=== PATIENT | male | born 1965 | race Caucasian/White ===

== ENCOUNTER 2021-06-01 16:19 | Inpatient (IN) | payer OTHER, SELFPAY ==
--- NOTE | ~2021-06-01 | XR_ITS ---
EXAMINATION: XR CHEST CLINICAL INFORMATION: Covid positive COMPARISON: None TECHNIQUE: Frontal view of the chest was obtained. FINDINGS: Patchy airspace opacities seen bilaterally. No pleural effusion or pneumothorax. Heart size is normal. No acute osseous abnormality. XR/XR chest 1V IMPRESSION: Patchy airspace opacities bilaterally consistent with atypical infection such as Covid pneumonia.
--- NOTE | ~2021-06-01 | CT_ITS ---
EXAMINATION: CT ANGIOGRAM OF THE CHEST WITH AND WITHOUT CONTRAST (CT PULMONARY ANGIOGRAM FOR PE) CLINICAL INFORMATION: COVID positive. Hypoxia. Evaluate for pulmonary embolism. COMPARISON: Chest radiograph done earlier the same day. TECHNIQUE: Prior to contrast administration, noncontrast localization images were obtained. Subsequently, multidetector volumetric imaging was performed from the thoracic inlet to below the diaphragms following the administration of 71 mL Omnipaque 350 intravenous contrast. No contrast reaction reported. Sagittal, coronal, and MIP oblique sagittal reformatted images were obtained on the CT workstation, uploaded to PACS, and reviewed. This CT examination was performed using dose optimization techniques as appropriate, variously including the following: *Automated exposure control *Adjustment of mA and/or kV according to patient size (this includes techniques or standardized protocols for targeted exams where dose is matched to indication/reason for exam; i.e. extremities or head) *Use of iterative reconstruction technique Total exam dose-length product 381 mGy-cm. FINDINGS: QUALITY OF STUDY/CONTRAST BOLUS: Satisfactory. PULMONARY ARTERIES: No central or segmental pulmonary emboli. THORACIC AORTA: No aneurysm or dissection. LUNG: There are diffuse bilateral ground-glass airspace opacities. No dense consolidative airspace opacity. No large mass or nodule. The central airways are patent. PLEURA: No pleural effusion or pneumothorax. MEDIASTINUM: Normal heart size. No pericardial effusion. No hilar or mediastinal lymphadenopathy. No evidence of septal bowing or right heart strain. CHEST WALL/AXILLA: No axillary or internal mammary lymphadenopathy. OSSEOUS STRUCTURES: No acute or suspicious osseous abnormality. UPPER ABDOMEN: Unremarkable. No reflux of contrast into the hepatic veins to suggest elevated right heart pressures. CT/CT angio chest PE protocol IMPRESSION: 1. No CT angiographic evidence of acute pulmonary embolism. 2. Diffuse bilateral ground-glass airspace opacities, consistent with multifocal pneumonia. Findings can be seen in the setting of an infectious or inflammatory process, including viral pneumonia. VTE: Negative
[2021-06-01 16:37] VITALS: O2SAT 88
[2021-06-01 16:45] VITALS: BP 140/90; PULSE 83; RESP 18; TEMP 36.9; O2SAT 94; BMI 31.8
--- NOTE | 2021-06-01 16:45 | ECG_ITS ---
Test Reason : SOB Blood Pressure : / mmHG Vent. Rate : 082 BPM Atrial Rate : 082 BPM P-R Int : 154 ms QRS Dur : 096 ms QT Int : 384 ms P-R-T Axes : 043 002 038 degrees QTc Int : 448 ms Normal sinus rhythm Cannot rule out Inferior infarct (cited on or before 23-FEB-2008) Abnormal ECG When compared with ECG of 23-FEB-2008 14:05, No significant change was found Referred By: Henry Ba Electronically Signed By:Favio Crane
--- NOTE | 2021-06-01 16:45 | ED_ITS ---
HPI - SOB/Dyspnea General Chief Complaint: Dyspnea Stated Complaint: Covid+ 05/27 - SOB Time Seen by Provider: 06/01/21 16:34 Source: patient Mode of arrival: ambulatory Limitations: no limitations History of Present Illness HPI Narrative: Patient 55 years old male not vaccinated against COVID been feeling short of breath with dry cough since 05/25/2021 came here for increased shortness of breath for last 2 days saturating 88% at room air of the patient feeling very weak not able to eat much does not feel hungry and having loose bowels patient is saturating 94% on 2 L nasal cannula oxygen Related Data Allergies Allergy/AdvReac Type Severity Reaction Status Date / Time No Known Allergies Allergy Mild NONE Unverified 03/08/20 16:33 Review of Systems Review of Systems: Constitutional : No Weight loss, No Fever, No Chills ENT/Mouth : No sore throat, No Rhinorrhea Eyes: No Eye Pain, No Swelling Cardiovascular : No Chest Pain, no palpitations Respiratory : + Cough, No Sputum,+shortness of breath Gastrointestinal : no Nausea, No Vomiting, ++ Diarrhea, No abdominal Pain, no black stools Genitourinary : No Dysuria, No Urinary Frequency Musculoskeletal : No joint pain, No Myalgias, No Joint Swelling Skin : No Skin Lesions, No rash Neuro : + Weakness, No Numbness, No Dizziness, No Headache Psych : No Anxiety/Panic, No Depression Heme/Lymph: No Bruising, No Lymphadenopathy Endocrine : No Polyuria, No Polydipsia All other systems reviewed and are negative PMFSH Social History Social History Advance Directives: No Advance Directives Information Provided: No Physical Exam Vital Signs: Vital Signs: Last Vital Signs Temp 98.4 F 06/01/21 16:45 Pulse 80 06/01/21 20:57 Resp 27 H 06/01/21 20:57 BP 151/93 H 06/01/21 20:57 Pulse Ox 94 06/01/21 20:57 Oxygen Flow Rate 2 06/01/21 16:45 BMI result Body Mass Index 31.8 Appearance: Alert. Oriented X3. Mild respiratory distress Eyes: No pallor or icterus ENT: Pharynx normal. Oral Mucosa moist Neck: Normal inspection. Neck supple. CVS: Normal heart rate and rhythm. Pulses normal. Respiratory: mild respiratory distress. Prolonged expiration, Equal air entry bilateral, no wheezing/rhonchi occasional rales b/l ++ Abdomen: Soft and nontender. Bowel sounds are present, no mass palpable, no CVA tenderness Skin: Skin warm and dry. Normal skin color. Normal skin turgor. Extremities: No lower extremity edema. No calf tenderness Neuro: Oriented X 3. No motor deficit. MDM - SOB/Dyspnea MDM Narrative Medical decision making narrative: Patient with COVID-19 pneumonia with hypoxia already 7 days with infection unvaccinated will start him on Decadron at this time and supportive treatment admit for further evaluation Lab Data Attestation: I reviewed the patient's lab results. Result diagrams: 06/01/21 17:17 06/01/21 17:17 Labs: Lab Results 06/01/21 06/01/21 06/01/21 Range/Units 17:17 17:17 17:17 WBC 7.1 (4.8-10.8) X10*3/uL RBC 4.99 (4.60-5.80) X10*6/uL Hgb 14.8 (14.0-18.0) g/dl Hct 43.7 (42.0-52.0) % MCV 87.6 (80.0-98.0) fL MCH 29.7 (27.0-33.0) pg MCHC 33.9 (31.0-36.0) g/dl RDW 12.9 (11.0-16.0) % Plt Count 184 (160-400) X10*3/uL MPV 9.1 L (9.4-12.4) fL Immature Gran % (Auto) 1.3 H (0.0-0.4) % Neut % (Auto) 84.0 H (45-73) % Lymph % (Auto) 9.1 L (20-40) % [place] % (Auto) 5.5 (2-11) % Eos % (Auto) 0.0 (0-4) % Baso % (Auto) 0.1 (0-2) % Lymph # (Auto) 0.7 L (1.2-4.9) X10*3/uL [place] # (Auto) 0.4 (0.1-1.2) X10*3/uL Eos # (Auto) 0.0 (0.0-0.4) X10*3/uL Baso # (Auto) 0.0 (0.0-0.2) X10*3/uL Abs Immat Gran (auto) 0.09 H (0.00-0.03) X10*3/uL Absolute Neuts (auto) 6.0 (2.0-8.3) x10*3/uL Absolute Nucleated RBC 0.000 (0.0-0.012) X10*3/uL Nucleated RBC % (auto) 0.0 (0.0-0.2) /100WBC PT 14.0 H (9.9-13.0) SEC INR 1.2 H (0.9-1.1) APTT 40.4 H (24.1-38.0) SEC D-Dimer High Sensitivty 315 NG/ML Sodium 135 (135-145) mmol/L Potassium 4.2 (3.3-5.1) mmol/L Chloride 100 (96-108) mmol/L Carbon Dioxide 25 (22-29) mmol/L Anion Gap 14 (12-20) BUN 9 (9-16) mg/dL Creatinine 0.98 (0.5-1.4) mg/dL Estim Creat Clear Calc 109.9 Estimated GFR > 60 Random Glucose 110 (60-115) mg/dL Calcium 8.9 (8.4-10.2) mg/dL Magnesium 1.9 (1.6-2.6) mg/dL Total Bilirubin 0.5 (0.0-1.0) mg/dL AST 244 H (5-37) U/L ALT 196 H (0-40) U/L Alkaline Phosphatase 63 (39-117) U/L Total Protein 6.5 (6.5-8.0) g/dL Albumin 3.7 (3.5-5.0) g/dL Influenza Type A (PCR) (Negative) Influenza Type B (PCR) (Negative) RSV RNA Qual (PCR) (Negative) SARS-CoV-2 RNA (RT-PCR) (Negative) 06/01/21 Range/Units 17:18 WBC (4.8-10.8) X10*3/uL RBC (4.60-5.80) X10*6/uL Hgb (14.0-18.0) g/dl Hct (42.0-52.0) % MCV (80.0-98.0) fL MCH (27.0-33.0) pg MCHC (31.0-36.0) g/dl RDW (11.0-16.0) % Plt Count (160-400) X10*3/uL MPV (9.4-12.4) fL Immature Gran % (Auto) (0.0-0.4) % Neut % (Auto) (45-73) % Lymph % (Auto) (20-40) % [place] % (Auto) (2-11) % Eos % (Auto) (0-4) % Baso % (Auto) (0-2) % Lymph # (Auto) (1.2-4.9) X10*3/uL [place] # (Auto) (0.1-1.2) X10*3/uL Eos # (Auto) (0.0-0.4) X10*3/uL Baso # (Auto) (0.0-0.2) X10*3/uL Abs Immat Gran (auto) (0.00-0.03) X10*3/uL Absolute Neuts (auto) (2.0-8.3) x10*3/uL Absolute Nucleated RBC (0.0-0.012) X10*3/uL Nucleated RBC % (auto) (0.0-0.2) /100WBC PT (9.9-13.0) SEC INR (0.9-1.1) APTT (24.1-38.0) SEC D-Dimer High Sensitivty NG/ML Sodium (135-145) mmol/L Potassium (3.3-5.1) mmol/L Chloride (96-108) mmol/L Carbon Dioxide (22-29) mmol/L Anion Gap (12-20) BUN (9-16) mg/dL Creatinine (0.5-1.4) mg/dL Estim Creat Clear Calc Estimated GFR Random Glucose (60-115) mg/dL Calcium (8.4-10.2) mg/dL Magnesium (1.6-2.6) mg/dL Total Bilirubin (0.0-1.0) mg/dL AST (5-37) U/L ALT (0-40) U/L Alkaline Phosphatase (39-117) U/L Total Protein (6.5-8.0) g/dL Albumin (3.5-5.0) g/dL Influenza Type A (PCR) NEGATIVE (Negative) Influenza Type B (PCR) NEGATIVE (Negative) RSV RNA Qual (PCR) NEGATIVE (Negative) SARS-CoV-2 RNA (RT-PCR) POSITIVE A (Negative) ECG Data Attestation: I personally reviewed and interpreted this ECG as follows: Interpretation: Normal sinus rhythm heart rate 82 beats per minute normal interval normal axis no acute ST-T changes no acute ischemia Discharge Plan Discharge Clinical Impression: Acute hypoxemic respiratory failure due to COVID-19 Patient Disposition: Admitted As Inpatient
[2021-06-01 17:01] VITALS: PULSE 81; RESP 11; O2SAT 93
[2021-06-01] MEDS: Albuterol/Iprat 2.5/0.5MG 3 ML AMPUL.NEB INHALE (17:01)
[2021-06-01 17:25] LABS: MANUAL DIFF FLAG NO
[2021-06-01 17:30] LABS: Basophils Percent Auto 0.1 % (0-2); Hematocrit 43.7 % (42.0-52.0); Hemoglobin 14.8 g/dl (14.0-18.0); Imm Gran Abs Auto 0.09 X10*3/uL (0.00-0.03); Imm Gran Pct Auto 1.3 % (0.0-0.4); Lymphocytes Absolute Auto 0.7 X10*3/uL (1.2-4.9); Lymphocytes Percent Auto 9.1 % (20-40); Mean Corpuscular HGB Conc 33.9 g/dl (31.0-36.0); Mean Corpuscular Hemoglobin 29.7 pg (27.0-33.0); Mean Corpuscular Volume 87.6 fL (80.0-98.0); Mean Platelet Volume 9.1 fL (9.4-12.4); Monocytes Absolute Auto 0.4 X10*3/uL (0.1-1.2); Monocytes Percent Auto 5.5 % (2-11); Platelet Count 184 X10*3/uL (160-400); Red Blood Count 4.99 X10*6/uL (4.60-5.80); Red Cell Distribution Width 12.9 % (11.0-16.0); White Blood Count 7.1 X10*3/uL (4.8-10.8)
[2021-06-01] MEDS: dexAMETHasone sod phosphate 10 MG/ML VIAL IVPUSH (17:30)
[2021-06-01] MEDS: 0.9 % Sodium Chloride 1,000 ML 999 ML IVCONT (17:30)
[2021-06-01 17:39] LABS: INTERNATIONAL NORM RATIO 1.2 (0.9-1.1)
[2021-06-01 17:41] LABS: D Dimer High Sensitivity 315 NG/ML; Partial Thromboplastin Time 40.4 SEC (24.1-38.0)
[2021-06-01 18:01] LABS: Alanine Aminotransferase 196 U/L (0-40); Albumin Level 3.7 g/dL (3.5-5.0); Alkaline Phosphatase 63 U/L (39-117); Anion Gap 14 (12-20); Aspartate Amino Transferase 244 U/L (5-37); Bilirubin Total 0.5 mg/dL (0.0-1.0); Blood Urea Nitrogen 9 mg/dL (9-16); Calcium 8.9 mg/dL (8.4-10.2); Carbon Dioxide 25 mmol/L (22-29); Chloride 100 mmol/L (96-108); Creatinine Clr Calc Pharmacy 109.9; Estimated Glomerular Filt Rate > 60; Glucose Random 110 mg/dL (60-115); Magnesium 1.9 mg/dL (1.6-2.6); Potassium 4.2 mmol/L (3.3-5.1); Sodium 135 mmol/L (135-145); Total Protein 6.5 g/dL (6.5-8.0)
[2021-06-01 18:13] LABS: Influenza A PCR NEGATIVE (Negative); Influenza B PCR NEGATIVE (Negative); Resp Syncy Virus RNA Qual PCR NEGATIVE (Negative); SARS COV2 PCR INHOUSE POSITIVE (Negative)
--- NOTE | 2021-06-01 18:29 | PC.NURSE ---
Patient alert and oriented x 3. Patient was 88% on room air applied 1l nasal cannula oxygen sat increased to 94%. Patient c/o diarrhea for days voiding in urinal. Patient c/o of mild headache. tele: sinus rhythm 80's Patient ambulates independently. Will continue to monitor.
--- NOTE | 2021-06-01 19:16 | P.HPHOSP_ITS ---
History of Present Illness Date of Service: 06/01/21 Chief Complaint: shortness of breath 55-year-old male with a past medical history of alcohol use, herniated disc presented to the hospital with a chief complaint of shortness of breath. Patient reports that over the past 1 week he has been not feeling well, having shortness of breath, generalized weakness, decreased appetite; over the past 2 days his symptoms have been worsened hence decided to come to the ER for further evaluation. Denies any chest pain palpitations lightheadedness or dizziness. Complains of cough. Review of all other systems is negative except mentioned above ER course: Per ER team patient on presentation noted to be saturating 88% on room air; not in respiratory distress; placed on supplemental oxygen; chest x-ray showed multifocal pneumonia/ COVID fetus; given Decadron. Admitted to the hospital for further management. D-dimer elevated to 315 ; [facility] Social History Advance Directives: No Advance Directives Information Provided: No Meds Allergies Allergy/AdvReac Type Severity Reaction Status Date / Time No Known Allergies Allergy Mild NONE Unverified 03/08/20 16:33 Physical Exam Vital Signs and Narrative: Vital Signs: Last Vital Signs Temp 98.4 F 06/01/21 16:45 Pulse 81 06/01/21 17:01 Resp 11 L 06/01/21 17:01 BP 140/90 H 06/01/21 16:45 Pulse Ox 94 06/01/21 16:45 Oxygen Flow Rate 2 06/01/21 16:45 BMI result Body Mass Index 31.8 Gen: Appears be in no acute distress HEENT: NCAT, Moist mucosa. Pulmonary: coarse breath sounds CVS: Normal S1-S2 Abdomen: BS+, Soft, Nontender Extremities: Warm well perfused Neuro: Alert and awake. Results Labs CBC and Chem 7: 06/01/21 17:17 06/01/21 17:17 Labs: Laboratory Results - last 24 hr 06/01/21 06/01/21 06/01/21 17:17 17:17 17:17 MCV 87.6 MCH 29.7 MCHC 33.9 RDW 12.9 Plt Count 184 MPV 9.1 L Immature Gran % (Auto) 1.3 H Neut % (Auto) 84.0 H Lymph % (Auto) 9.1 L [place] % (Auto) 5.5 Eos % (Auto) 0.0 Baso % (Auto) 0.1 Lymph # (Auto) 0.7 L [place] # (Auto) 0.4 Eos # (Auto) 0.0 Baso # (Auto) 0.0 Abs Immat Gran (auto) 0.09 H Absolute Neuts (auto) 6.0 Absolute Nucleated RBC 0.000 Nucleated RBC % (auto) 0.0 PT 14.0 H INR 1.2 H APTT 40.4 H D-Dimer High Sensitivty 315 Anion Gap 14 Estim Creat Clear Calc 109.9 Estimated GFR > 60 Random Glucose 110 Calcium 8.9 Magnesium 1.9 Total Bilirubin 0.5 AST 244 H ALT 196 H Alkaline Phosphatase 63 Total Protein 6.5 Albumin 3.7 Influenza Type A (PCR) Influenza Type B (PCR) RSV RNA Qual (PCR) SARS-CoV-2 RNA (RT-PCR) 06/01/21 17:18 MCV MCH MCHC RDW Plt Count MPV Immature Gran % (Auto) Neut % (Auto) Lymph % (Auto) [place] % (Auto) Eos % (Auto) Baso % (Auto) Lymph # (Auto) [place] # (Auto) Eos # (Auto) Baso # (Auto) Abs Immat Gran (auto) Absolute Neuts (auto) Absolute Nucleated RBC Nucleated RBC % (auto) PT INR APTT D-Dimer High Sensitivty Anion Gap Estim Creat Clear Calc Estimated GFR Random Glucose Calcium Magnesium Total Bilirubin AST ALT Alkaline Phosphatase Total Protein Albumin Influenza Type A (PCR) NEGATIVE Influenza Type B (PCR) NEGATIVE RSV RNA Qual (PCR) NEGATIVE SARS-CoV-2 RNA (RT-PCR) POSITIVE A Imaging Radiologist's Impressions: Impressions Chest X-Ray 06/01/21 17:29 IMPRESSION: Patchy airspace opacities bilaterally consistent with atypical infection such as Covid pneumonia. Assessment and Plan (1) Pneumonia due to COVID-19 virus: Status: Acute (2) Hypoxia: Status: Acute 55-year-old male with a past medical history of herniated discs presented to the hospital today with a chief complaint of shortness of breath. Noted to have COVID-19 pneumonia. Admitted for further management. Acute hypoxic respiratory failure: In the setting of COVID-19 pneumonia. On supplemental oxygen. Not in respiratory distress currently. Supportive care. Albuterol inhaler p.r.n.. COVID-19 pneumonia: Continue ceftriaxone azithromycin empirically. Will give the patient Decadron 6 mg ID consult for further recommendations. DVT prophylaxis: Lovenox Code status: Full code Quality Stroke Does the patient have a stroke diagnosis?: No VTE Prior VTE?: No VTE Risk Level:: Medical - moderate - high VTE Device Contraindication: Treatment Not Indicated VTE Drug Contraindication: N/A - Med Ordered
[2021-06-01 19:26] VITALS: BP 171/98; PULSE 82; RESP 18; O2SAT 93
[2021-06-01] MEDS: cefTRIAXone sodium 1 GM in 0.9 % Sodium Chloride 50 ML IV (20:55)
[2021-06-01] MEDS: Enoxaparin Sodium 40 MG/0.4 ML SYRINGE SUBCUT (20:56)
[2021-06-01] MEDS: Azithromycin 500 MG TABLET PO (20:56)
[2021-06-01] MEDS: Famotidine 20 MG TABLET PO (20:56)
[2021-06-01 20:57] VITALS: BP 151/93; PULSE 80; RESP 27; O2SAT 94
[2021-06-01] MEDS: iohexoL 350 MG/ML 100 ML INFUS..BTL IV (22:55)
[2021-06-02] VITALS (8 sets, daily range): BP systolic 145–163; BP diastolic 74–101; PULSE 71–92; RESP 18–36; TEMP 36.8–37.8; O2SAT 88–97
--- NOTE | 2021-06-02 05:01 | PC.NURSE ---
PT DESATS CONSIDERABLY UPON ANY EXCERTION. PT HAS BEEN USING THE BEDSIDE COMMODE THROUGHOUT THE NIGHT WHERE HE WILL SESAT TO ABOUT 90% ON 2L BUT RECOVERS QUICKLY ONCE HE IS BACK IN BED COMING BACK UP TO 94-96% BUT UPON LAST ROUND TO THE COMMODE PT DESAT TO 88% INITALLY, BUMPED TO 4L W/NO SUCCESS PT TO 83% AND THEN O2 RAISED TO 6L PT UP TO 85%. PT THEN PLACED ON NRB 15L AND SLOWLY CAME BACK UP TO 97%. RT AT BEDSIDE SUGGESTS LETTING PT RECOVER ON THIS AND THEN TITRATING PT TO NASAL CANAL W/2L BEING THE GOAL.
[2021-06-02] MEDS: Morphine Sulfate 4 MG/ML CARTRIDGE 1 MG IVPUSH ×2 (05:21→19:49)
--- NOTE | 2021-06-02 06:18 | PC.NURSE ---
PT GIVEN PRN 1MG MORPHINE TO AID W/SOB. PT ADDITIONALLY TITRATED OFF OF NRB TO 6L NC. PER RT O2 SAT GOAL OF 88-92% ON NC MAX OF 6L
[2021-06-02 06:33] LABS: MANUAL DIFF FLAG NO
[2021-06-02 06:42] LABS: Hematocrit 42.5 % (42.0-52.0); Hemoglobin 14.4 g/dl (14.0-18.0); Imm Gran Abs Auto 0.13 X10*3/uL (0.00-0.03); Imm Gran Pct Auto 1.7 % (0.0-0.4); Lymphocytes Absolute Auto 0.5 X10*3/uL (1.2-4.9); Lymphocytes Percent Auto 7.1 % (20-40); Mean Corpuscular HGB Conc 33.9 g/dl (31.0-36.0); Mean Corpuscular Hemoglobin 30.1 pg (27.0-33.0); Mean Corpuscular Volume 88.7 fL (80.0-98.0); Mean Platelet Volume 8.9 fL (9.4-12.4); Monocytes Absolute Auto 0.3 X10*3/uL (0.1-1.2); Monocytes Percent Auto 4.1 % (2-11); Neutrophils Absolute Auto 6.6 x10*3/uL (2.0-8.3); Neutrophils Percent Auto 87.1 % (45-73); Platelet Count 215 X10*3/uL (160-400); Red Blood Count 4.79 X10*6/uL (4.60-5.80); Red Cell Distribution Width 13.2 % (11.0-16.0); White Blood Count 7.6 X10*3/uL (4.8-10.8)
[2021-06-02 06:54] LABS: Anion Gap 14 (12-20); Blood Urea Nitrogen 10 mg/dL (9-16); Calcium 8.5 mg/dL (8.4-10.2); Carbon Dioxide 22 mmol/L (22-29); Chloride 103 mmol/L (96-108); Creatinine Clr Calc Pharmacy 134.7; Estimated Glomerular Filt Rate > 60; Glucose Random 157 mg/dL (60-115); Potassium 3.8 mmol/L (3.3-5.1); Sodium 135 mmol/L (135-145)
--- NOTE | 2021-06-02 09:02 | PC.NURSE ---
Pt resting on L side on stretcher, A&Ox3, no complaints of pain but desat with talking and activity. Pt placed on castro O2 9L at this time by respiratory. Pt encouraged to stay on L side as long as possible to help with oxygen levels. Awaiting bed assignment. Call oyo within reach, will conitnue to monitor.
[2021-06-02] MEDS: dexAMETHasone 6 MG TABLET PO (09:22)
[2021-06-02] MEDS: Famotidine 20 MG TABLET PO ×2 (09:22→19:50)
[2021-06-02] MEDS: 0.9 % Sodium Chloride Flush 3 ML SYRINGE IVFLUSH ×3 (09:23→19:50)
--- NOTE | 2021-06-02 09:24 | PC.NURSE ---
Medicated as per MAR orders. 97% on 9L at this time. Pffers no complaints of pain. Will continue to monitor.
--- NOTE | 2021-06-02 10:24 | HO.PM.IMPN ---
Subjective Subjective Date of Service: 06/02/21 Interval History: cc: sob interval history: still sob Cardiovascular Cardiovascular: Reports no additional cardiovascular complaints Gastrointestinal Gastrointestinal: Reports no additional gastrointestinal complaints Physical Exam Vital Signs: Vital Signs: Last Vital Signs Temp 100.0 F 06/02/21 07:30 Pulse 84 06/02/21 09:00 Resp 22 H 06/02/21 09:00 BP 161/100 H 06/02/21 09:00 Pulse Ox 92 06/02/21 09:00 Oxygen Flow Rate 2 06/01/21 16:45 BMI result Body Mass Index 31.8 General: AO X 3, diaphoretic, dyspneic Resp: Crackles bilateral, accessory muscles used CVS: S1,S2,RRR GI: soft, non tender, non distended Neuro: motor grossly intact, alert Psych: appropriate affect, appropriate insight Objective Data Active Medications Acetaminophen (Acetaminophen 325 Mg Tablet) 650 mg PO Q6H PRN PRN Reason: Pain, Mild (Pain Scale 1-3) Albuterol Sulfate (Albuterol Sulfate 90 Mcg 8 Gm Inhaler) 4 puff INHALE Q2H PRN PRN Reason: Shortness of Breath/Wheezing Dexamethasone (Dexamethasone 6 Mg Tablet) 6 mg PO DAILY [facility] Last Admin: 06/02/21 09:22 Dose: 6 mg Documented by: LOVE Enoxaparin Sodium (Enoxaparin Sodium 40 Mg/0.4 Ml Syringe) 40 mg SUBCUT Q24H [facility] Last Admin: 06/01/21 20:56 Dose: 40 mg Documented by: RAMIREZ Famotidine (Famotidine 20 Mg Tablet) 20 mg PO BID [facility] Last Admin: 06/02/21 09:22 Dose: 20 mg Documented by: LOVE Melatonin (Melatonin 3 Mg Tablet) 6 mg PO BEDTIME PRN PRN Reason: Insomnia Morphine Sulfate (Morphine Sulfate 4 Mg/Ml Cartridge) 1 mg IVPUSH Q4H PRN; Protocol PRN Reason: Pain, SOB Last Admin: 06/02/21 05:21 Dose: 1 mg Documented by: RAMIREZ Pharmacy Consult (Consult Rx Perform Med Rec) 1 each MISCELLANE ONCE PRN PRN Reason: Consult order Senna (Sennosides 8.6 Mg Tablet) 17.2 mg PO BEDTIME PRN PRN Reason: Constipation Sodium Chloride (0.9 % Sodium Chloride Flush 3 Ml Syringe) 3 ml IVFLUSH QSHIFT [facility] Last Admin: 06/02/21 09:23 Dose: 3 ml Documented by: LOVE Labs CBC & Chem 7: 06/02/21 06:29 06/02/21 06:29 Labs: Laboratory Results - last 24 hr 06/01/21 06/01/21 06/01/21 17:17 17:17 17:17 MCV 87.6 MCH 29.7 MCHC 33.9 RDW 12.9 Plt Count 184 MPV 9.1 L Immature Gran % (Auto) 1.3 H Neut % (Auto) 84.0 H Lymph % (Auto) 9.1 L [place] % (Auto) 5.5 Eos % (Auto) 0.0 Baso % (Auto) 0.1 Lymph # (Auto) 0.7 L [place] # (Auto) 0.4 Eos # (Auto) 0.0 Baso # (Auto) 0.0 Abs Immat Gran (auto) 0.09 H Absolute Neuts (auto) 6.0 Absolute Nucleated RBC 0.000 Nucleated RBC % (auto) 0.0 PT 14.0 H INR 1.2 H APTT 40.4 H D-Dimer High Sensitivty 315 Anion Gap 14 Estim Creat Clear Calc 109.9 Estimated GFR > 60 Random Glucose 110 Calcium 8.9 Magnesium 1.9 Total Bilirubin 0.5 AST 244 H ALT 196 H Alkaline Phosphatase 63 Total Protein 6.5 Albumin 3.7 Influenza Type A (PCR) Influenza Type B (PCR) RSV RNA Qual (PCR) SARS-CoV-2 RNA (RT-PCR) 06/01/21 06/02/21 06/02/21 17:18 06:29 06:29 MCV 88.7 MCH 30.1 MCHC 33.9 RDW 13.2 Plt Count 215 MPV 8.9 L Immature Gran % (Auto) 1.7 H Neut % (Auto) 87.1 H Lymph % (Auto) 7.1 L [place] % (Auto) 4.1 Eos % (Auto) 0.0 Baso % (Auto) 0.0 Lymph # (Auto) 0.5 L [place] # (Auto) 0.3 Eos # (Auto) 0.0 Baso # (Auto) 0.0 Abs Immat Gran (auto) 0.13 H Absolute Neuts (auto) 6.6 Absolute Nucleated RBC 0.000 Nucleated RBC % (auto) 0.0 PT INR APTT D-Dimer High Sensitivty Anion Gap 14 Estim Creat Clear Calc 134.7 Estimated GFR > 60 Random Glucose 157 H D Calcium 8.5 Magnesium Total Bilirubin AST ALT Alkaline Phosphatase Total Protein Albumin Influenza Type A (PCR) NEGATIVE Influenza Type B (PCR) NEGATIVE RSV RNA Qual (PCR) NEGATIVE SARS-CoV-2 RNA (RT-PCR) POSITIVE A Assessment and Plan (1) Acute hypoxemic respiratory failure due to COVID-19: Status: Acute Assessment and Plan: 55M presented with sob Acute hypoxic respiratory failure secondary to COVID pneumonia Dexamethasone Wean O2 as tolerated Monitor inflammatory markers Quality Stroke Does the patient have a stroke diagnosis?: No VTE Prior VTE?: No VTE Risk Level:: Medical - moderate - high VTE Device Contraindication: Treatment Not Indicated VTE Drug Contraindication: N/A - Med Ordered
--- NOTE | 2021-06-02 11:33 | PC.NURSE ---
Pt OOB to commode with no assist. No complaint of pain, awaiting bed assignment. Spok to and updated POC. Will continue to mnitor.
--- NOTE | 2021-06-02 13:03 | PC.NURSE ---
Pt resting, A&Ox3, awaiting bed assignment, currently 92% on 9L humidified NC. Pt offers no complaints, will continue to monitor.
--- NOTE | 2021-06-02 13:49 | PC.NURSE ---
Pt OOB to commode, desat with movement but pt states he is begining to feel better and less SOB. remains A&Ox3, awaiting bed assignment. Will continue to monitor.
[2021-06-02] MEDS: Enoxaparin Sodium 40 MG/0.4 ML SYRINGE SUBCUT (19:49)
[2021-06-03] VITALS (11 sets, daily range): BP systolic 127–161; BP diastolic 72–97; PULSE 60–81; RESP 18–20; TEMP 36.4–37; O2SAT 89–100
--- NOTE | 2021-06-03 03:27 | PC.NURSE ---
pt on 15L [place] not tolerating well; de-sats to mid 80% during OOB to commode, and developed epistaxis. Switched to de-humidified o2, and eventually NRB @ 15L d/t patient tolerating it better than Hall. Pt also states he is a mouth breather and preferred wearing the mask. Will continue to monitor and wean oxygen to maintain sats at 90% or above.
[2021-06-03 06:11] LABS: Hematocrit 45.2 % (42.0-52.0); Hemoglobin 15.2 g/dl (14.0-18.0); Mean Corpuscular HGB Conc 33.6 g/dl (31.0-36.0); Mean Corpuscular Hemoglobin 29.6 pg (27.0-33.0); Mean Corpuscular Volume 87.9 fL (80.0-98.0); Mean Platelet Volume 9.3 fL (9.4-12.4); Platelet Count 290 X10*3/uL (160-400); Red Blood Count 5.14 X10*6/uL (4.60-5.80); Red Cell Distribution Width 13.2 % (11.0-16.0); White Blood Count 9.9 X10*3/uL (4.8-10.8)
[2021-06-03 06:19] LABS: D Dimer High Sensitivity 336 NG/ML
[2021-06-03 06:39] LABS: Anion Gap 16 (12-20); Blood Urea Nitrogen 16 mg/dL (9-16); C Reactive Protein 8.57 mg/dL (< or = 0.50); Calcium 8.7 mg/dL (8.4-10.2); Carbon Dioxide 23 mmol/L (22-29); Chloride 103 mmol/L (96-108); Creatinine Clr Calc Pharmacy 136.4; Estimated Glomerular Filt Rate > 60; Glucose Fasting 141 mg/dL (60-99); Lactate Dehydrogenase 761 U/L (118-273); Potassium 4.5 mmol/L (3.3-5.1); Sodium 137 mmol/L (135-145)
[2021-06-03] MEDS: Famotidine 20 MG TABLET PO ×2 (08:36→20:20)
[2021-06-03] MEDS: 0.9 % Sodium Chloride Flush 3 ML SYRINGE IVFLUSH ×3 (08:36→20:20)
[2021-06-03] MEDS: dexAMETHasone sod phosphate 4 MG/ML VIAL 6 MG IVPUSH (08:36)
--- NOTE | 2021-06-03 09:45 | HO.PM.IMPN ---
Subjective Subjective Date of Service: 06/03/21 Interval History: cc: sob interval history: still sob, about same as yesterday, had epistaxis yesterday Cardiovascular Cardiovascular: Reports no additional cardiovascular complaints Gastrointestinal Gastrointestinal: Reports no additional gastrointestinal complaints Physical Exam Vital Signs: Vital Signs: Last Vital Signs Temp 98.6 F 06/03/21 07:51 Pulse 73 06/03/21 07:51 Resp 18 06/03/21 09:42 BP 127/92 H 06/03/21 07:51 Pulse Ox 94 06/03/21 07:51 Oxygen Flow Rate 2 06/01/21 16:45 BMI result Body Mass Index 31.8 General: AO X 3, diaphoretic, dyspneic Resp:? Crackles bilateral, accessory muscles used CVS: S1,S2,RRR GI: soft, non tender, non distended Neuro:? motor grossly intact, alert Psych: appropriate affect, appropriate insight? Objective Data Active Medications Acetaminophen (Acetaminophen 325 Mg Tablet) 650 mg PO Q6H PRN PRN Reason: Pain, Mild (Pain Scale 1-3) Albuterol Sulfate (Albuterol Sulfate 90 Mcg 8 Gm Inhaler) 4 puff INHALE Q2H PRN PRN Reason: Shortness of Breath/Wheezing Dexamethasone Sodium Phosphate (Dexamethasone Sod Phosphate 4 Mg/Ml Vial) 6 mg IVPUSH DAILY [facility] Last Admin: 06/03/21 08:36 Dose: 6 mg Documented by: BERNY Enoxaparin Sodium (Enoxaparin Sodium 40 Mg/0.4 Ml Syringe) 40 mg SUBCUT Q24H [facility] Last Admin: 06/02/21 19:49 Dose: 40 mg Documented by: HUGH Famotidine (Famotidine 20 Mg Tablet) 20 mg PO BID [facility] Last Admin: 06/03/21 08:36 Dose: 20 mg Documented by: BERNY Melatonin (Melatonin 3 Mg Tablet) 6 mg PO BEDTIME PRN PRN Reason: Insomnia Morphine Sulfate (Morphine Sulfate 4 Mg/Ml Cartridge) 1 mg IVPUSH Q4H PRN; Protocol PRN Reason: Pain, SOB Last Admin: 06/02/21 19:49 Dose: 1 mg Documented by: HUGH Pharmacy Consult (Consult Rx Perform Med Rec) 1 each MISCELLANE ONCE PRN PRN Reason: Consult order Senna (Sennosides 8.6 Mg Tablet) 17.2 mg PO BEDTIME PRN PRN Reason: Constipation Sodium Chloride (0.9 % Sodium Chloride Flush 3 Ml Syringe) 3 ml IVFLUSH QSHIFT [facility] Last Admin: 06/03/21 08:36 Dose: 3 ml Documented by: BERNY Labs CBC & Chem 7: 06/03/21 05:26 06/03/21 05:26 Labs: Laboratory Results - last 24 hr 06/03/21 06/03/21 06/03/21 05:26 05:26 05:26 MCV 87.9 MCH 29.6 MCHC 33.6 RDW 13.2 Plt Count 290 D MPV 9.3 L Absolute Nucleated RBC 0.000 Nucleated RBC % (auto) 0.0 D-Dimer High Sensitivty 336 Anion Gap 16 Estim Creat Clear Calc 136.4 Estimated GFR > 60 Fasting Glucose 141 H Calcium 8.7 Lactate Dehydrogenase 761 H C-Reactive Protein 8.57 H Assessment and Plan (1) Acute hypoxemic respiratory failure due to COVID-19: Status: Acute Assessment and Plan: 55M presented with sob Acute hypoxic respiratory failure secondary to COVID pneumonia Dexamethasone day 3 Wean O2 as tolerated - requirements increasing Monitor inflammatory markers epistaxis due to NC use humidified air if possible Quality Stroke Does the patient have a stroke diagnosis?: No VTE Prior VTE?: No VTE Risk Level:: Medical - moderate - high VTE Device Contraindication: Treatment Not Indicated VTE Drug Contraindication: N/A - Med Ordered
--- NOTE | 2021-06-03 10:10 | MHC.CM.PN ---
spoke with pts who explains that pt is not vaccinated that he is independent and working it is not anticapated that pt eill need servceis when dcd cm will continue to follow
--- NOTE | 2021-06-03 10:17 | MHC.CM.PN ---
spoke with pts who explains ,that pt is independent he is vaccinated he has own transportaion home dc plan home no services
[2021-06-03 11:07] LABS: Venous Blood Gas Refer to POC result
[2021-06-03 11:08] LABS: VBG Base Excess 3.5 mmol/L; VBG HCO3 27 mmol/L (22-26); VBG pCO2 39 mmHg; VBG pH 7.45 (7.32-7.43); VBG pO2 33 mmHg
[2021-06-03] MEDS: Oxymetazoline HCl 0.05 % Nasal 15 ML SPRAY 2 SPRAY NOSTRIL-B (13:12)
[2021-06-03] MEDS: Enoxaparin Sodium 40 MG/0.4 ML SYRINGE SUBCUT (20:20)
--- NOTE | 2021-06-03 21:52 | P.CNID_ITS ---
History of Present Illness Data of Consult Service Date: 06/03/21 Requesting physician: Timo Abbott Primary Care Provider: Erick Rosado MD [facility] Reason for consult: shortness of breath He has shortness of breath since 05/25 ,10 days He has COVID positive 05/27 He has high flow Review of Systems Review of Systems: Yes all other systems are reviewed and are negative PMFSH Family History Family history: reviewed and not pertinent Social History Social History Household Members: Family Housing: House Do you presently have visiting nurse or other home services: No Patient Tobacco Use Status: Never used Tobacco service: No Meds Allergies Allergy/AdvReac Type Severity Reaction Status Date / Time No Known Allergies Allergy Mild NONE Unverified 03/08/20 16:33 Active Medications: Current Medications Acetaminophen (Acetaminophen 325 Mg Tablet) 650 mg PO Q6H PRN PRN Reason: Pain, Mild (Pain Scale 1-3) Albuterol Sulfate (Albuterol Sulfate 90 Mcg 8 Gm Inhaler) 4 puff INHALE Q2H PRN PRN Reason: Shortness of Breath/Wheezing Dexamethasone Sodium Phosphate (Dexamethasone Sod Phosphate 4 Mg/Ml Vial) 6 mg IVPUSH DAILY [facility] Last Admin: 06/03/21 08:36 Dose: 6 mg Documented by: Enoxaparin Sodium (Enoxaparin Sodium 40 Mg/0.4 Ml Syringe) 40 mg SUBCUT Q24H [facility] Last Admin: 06/03/21 20:20 Dose: 40 mg Documented by: Famotidine (Famotidine 20 Mg Tablet) 20 mg PO BID [facility] Last Admin: 06/03/21 20:20 Dose: 20 mg Documented by: Melatonin (Melatonin 3 Mg Tablet) 6 mg PO BEDTIME PRN PRN Reason: Insomnia Morphine Sulfate (Morphine Sulfate 4 Mg/Ml Cartridge) 1 mg IVPUSH Q4H PRN; Protocol PRN Reason: Pain, SOB Last Admin: 06/02/21 19:49 Dose: 1 mg Documented by: Pharmacy Consult (Consult Rx Perform Med Rec) 1 each MISCELLANE ONCE PRN PRN Reason: Consult order Senna (Sennosides 8.6 Mg Tablet) 17.2 mg PO BEDTIME PRN PRN Reason: Constipation Sodium Chloride (0.9 % Sodium Chloride Flush 3 Ml Syringe) 3 ml IVFLUSH QSHIFT [facility] Last Admin: 06/03/21 20:20 Dose: 3 ml Documented by: Home Medications Medication Instructions Recorded Confirmed Last Taken Type twbggvwuwvnz-uxo-[id number] acid-vit 1 tab PO DAILY 06/02/21 06/02/21 Unknown History K-lycop 400 mcg-20 mcg-370 mcg tablet (Men's 50 Plus Multivitamin) Physical Exam Vital Signs: Vital Signs: Last Vital Signs Temp 98 F 06/03/21 19:44 Pulse 63 06/03/21 19:44 Resp 18 06/03/21 19:44 BP 157/78 H 06/03/21 19:44 Pulse Ox 89 L 06/03/21 19:44 Oxygen Flow Rate 2 06/01/21 16:45 BMI result Body Mass Index 31.8 Const: General: cooperative Eyes: General: appearance normal, both eyes and all related structures Resp: Effort & Inspection: able to speak in complete sentences Cardio: Rate: regular rate Rhythm: regular rhythm GI: Palpation (GI): Soft to palpation and nontender Extrem: General: Yes normal to inspection Results Labs CBC & Chem 7: 06/03/21 05:26 06/03/21 05:26 Labs: Short CBC 06/03/21 Range/Units 05:26 WBC 9.9 (4.8-10.8) X10*3/uL Hgb 15.2 (14.0-18.0) g/dl Hct 45.2 (42.0-52.0) % Plt Count 290 D (160-400) X10*3/uL BMP 06/03/21 05:26 Sodium 137 Potassium 4.5 Chloride 103 Carbon Dioxide 23 BUN 16 D Creatinine 0.79 Calcium 8.7 Assessment and Plan (1) Acute hypoxemic respiratory failure due to COVID-19: Status: Acute He has symptoms of COVID for 10 days He has elevated over five times normal LFTs He is on high flow and has no PE at this peter (2) Hypoxia: Status: Acute Dexamethasone Oxygen as needed No Remdesivir due to increased LFTs No baricitinib unless worsening oxygen need
[2021-06-04] VITALS (13 sets, daily range): BP systolic 132–161; BP diastolic 75–86; PULSE 56–79; RESP 18–24; TEMP 36.4–37.2; O2SAT 90–97
[2021-06-04] MEDS: dexAMETHasone sod phosphate 4 MG/ML VIAL 6 MG IVPUSH (07:55)
[2021-06-04] MEDS: 0.9 % Sodium Chloride Flush 3 ML SYRINGE IVFLUSH ×3 (07:56→21:33)
[2021-06-04] MEDS: Famotidine 20 MG TABLET PO ×2 (07:56→21:33)
--- NOTE | 2021-06-04 10:14 | HO.PM.IMPN ---
Subjective Subjective Date of Service: 06/04/21 Interval History: cc: sob interval history: still sob, but a bit better, had epistaxis last 2 days, but no further episodes since yesterday afternoon Cardiovascular Cardiovascular: Reports no additional cardiovascular complaints Gastrointestinal Gastrointestinal: Reports no additional gastrointestinal complaints Physical Exam Vital Signs: Vital Signs: Last Vital Signs Temp 97.8 F 06/04/21 07:34 Pulse 70 06/04/21 07:34 Resp 24 H 06/04/21 07:47 BP 143/81 H 06/04/21 07:34 Pulse Ox 96 06/04/21 07:34 Oxygen Flow Rate 2 06/01/21 16:45 BMI result Body Mass Index 31.8 General: AO X 3, dyspneic Resp:? Crackles bilateral, mild accessory muscles used CVS: S1,S2,RRR GI: soft, non tender, non distended Neuro:? motor grossly intact, alert Psych: appropriate affect, appropriate insight? Objective Data Active Medications Acetaminophen (Acetaminophen 325 Mg Tablet) 650 mg PO Q6H PRN PRN Reason: Pain, Mild (Pain Scale 1-3) Albuterol Sulfate (Albuterol Sulfate 90 Mcg 8 Gm Inhaler) 4 puff INHALE Q2H PRN PRN Reason: Shortness of Breath/Wheezing Dexamethasone Sodium Phosphate (Dexamethasone Sod Phosphate 4 Mg/Ml Vial) 6 mg IVPUSH DAILY [facility] Last Admin: 06/04/21 07:55 Dose: 6 mg Documented by: ANNE-MARIE Enoxaparin Sodium (Enoxaparin Sodium 40 Mg/0.4 Ml Syringe) 40 mg SUBCUT Q24H [facility] Last Admin: 06/03/21 20:20 Dose: 40 mg Documented by: CARMEN Famotidine (Famotidine 20 Mg Tablet) 20 mg PO BID [facility] Last Admin: 06/04/21 07:56 Dose: 20 mg Documented by: ANNE-MARIE Melatonin (Melatonin 3 Mg Tablet) 6 mg PO BEDTIME PRN PRN Reason: Insomnia Morphine Sulfate (Morphine Sulfate 4 Mg/Ml Cartridge) 1 mg IVPUSH Q4H PRN; Protocol PRN Reason: Pain, SOB Last Admin: 06/02/21 19:49 Dose: 1 mg Documented by: HUGH Pharmacy Consult (Consult Rx Perform Med Rec) 1 each MISCELLANE ONCE PRN PRN Reason: Consult order Senna (Sennosides 8.6 Mg Tablet) 17.2 mg PO BEDTIME PRN PRN Reason: Constipation Sodium Chloride (0.9 % Sodium Chloride Flush 3 Ml Syringe) 3 ml IVFLUSH QSHIFT [facility] Last Admin: 06/04/21 07:56 Dose: 3 ml Documented by: ANNE-MARIE Labs CBC & Chem 7: 06/03/21 05:26 06/03/21 05:26 Labs: Laboratory Results - last 24 hr 06/03/21 11:00 VBG pH 7.45 H VBG pCO2 39 VBG pO2 33 VBG HCO3 27 H VBG O2 Saturation 50.0 VBG Base Excess 3.5 Assessment and Plan (1) Acute hypoxemic respiratory failure due to COVID-19: Status: Acute Assessment and Plan: 55M presented with sob Acute hypoxic respiratory failure secondary to COVID pneumonia Dexamethasone day 4 Wean O2 as tolerated - now tolerating HFNC Monitor inflammatory markers ID appreciated epistaxis due to NC got afrin yesterday use humidified air if possible improved Quality Stroke Does the patient have a stroke diagnosis?: No VTE Prior VTE?: No VTE Risk Level:: Medical - moderate - high VTE Device Contraindication: Treatment Not Indicated VTE Drug Contraindication: N/A - Med Ordered
[2021-06-04] MEDS: Oxymetazoline HCl 0.05 % Nasal 15 ML SPRAY 2 SPRAY NOSTRIL-B (16:04)
[2021-06-04] MEDS: Enoxaparin Sodium 40 MG/0.4 ML SYRINGE SUBCUT (21:33)
[2021-06-05] VITALS (14 sets, daily range): BP systolic 129–157; BP diastolic 66–84; PULSE 61–82; RESP 18–24; TEMP 36.6–37.3; O2SAT 89–97
[2021-06-05 06:47] LABS: Hematocrit 43.9 % (42.0-52.0); Hemoglobin 14.7 g/dl (14.0-18.0); Mean Corpuscular HGB Conc 33.5 g/dl (31.0-36.0); Mean Corpuscular Hemoglobin 29.6 pg (27.0-33.0); Mean Corpuscular Volume 88.5 fL (80.0-98.0); Mean Platelet Volume 9.4 fL (9.4-12.4); Platelet Count 333 X10*3/uL (160-400); Red Blood Count 4.96 X10*6/uL (4.60-5.80); Red Cell Distribution Width 12.9 % (11.0-16.0); White Blood Count 14.1 X10*3/uL (4.8-10.8)
[2021-06-05 07:07] LABS: D Dimer High Sensitivity 921 NG/ML
[2021-06-05 07:40] LABS: Alanine Aminotransferase 232 U/L (0-40); Albumin Level 3.4 g/dL (3.5-5.0); Alkaline Phosphatase 54 U/L (39-117); Anion Gap 16 (12-20); Aspartate Amino Transferase 120 U/L (5-37); Bilirubin Direct 0.4 mg/dL (0.0-0.5); Bilirubin Total 0.9 mg/dL (0.0-1.0); Blood Urea Nitrogen 18 mg/dL (9-16); C Reactive Protein 2.02 mg/dL (< or = 0.50); Calcium 8.7 mg/dL (8.4-10.2); Carbon Dioxide 23 mmol/L (22-29); Chloride 102 mmol/L (96-108); Creatinine Clr Calc Pharmacy 143.7; Estimated Glomerular Filt Rate > 60; Glucose Fasting 94 mg/dL (60-99); Lactate Dehydrogenase 691 U/L (118-273); Potassium 4.5 mmol/L (3.3-5.1); Sodium 136 mmol/L (135-145); Total Protein 6.1 g/dL (6.5-8.0)
[2021-06-05] MEDS: Famotidine 20 MG TABLET PO ×2 (09:17→19:59)
[2021-06-05] MEDS: dexAMETHasone sod phosphate 4 MG/ML VIAL 6 MG IVPUSH (09:17)
[2021-06-05] MEDS: 0.9 % Sodium Chloride Flush 3 ML SYRINGE IVFLUSH ×3 (09:17→19:59)
[2021-06-05] MEDS: Albuterol Sulfate 90 MCG 8 GM INHALER 4 PUFF INHALE ×2 (11:54→15:35)
--- NOTE | 2021-06-05 12:15 | P.PNIM_ITS ---
Subjective Subjective Date of Service: 06/05/21 Interval History: the patient was seen and evaluated this morning Laying in bed, feels little anxious and concerned Increased oxygen requirement and respiratory distress overnight Decreased appetite No reported other overnight events. Systemic review: No fever, chills but reports generalized weakness No chest pain, palpitation Having shortness of breath and dyspnea with minimal exertion No abdominal pain, nausea or vomiting No urinary symptoms No any rash or wounds Physical Exam 2 Vital Signs: Vital Signs: Last Vital Signs Temp 99.1 F 06/05/21 11:13 Pulse 72 06/05/21 11:54 Resp 24 H 06/05/21 11:54 BP 141/80 H 06/05/21 11:13 Pulse Ox 95 06/05/21 11:13 Oxygen Flow Rate 2 06/01/21 16:45 BMI result Body Mass Index 31.8 Const: Other: Constitutional : Alert, oriented, in mild respiratory distress Neck : Normal inspection, Supple Cardiovascular : RRR, S1 S2, no lower extremity edema Respiratory : Decreased bilateral air entry, no wheezes, on high-flow oxygen supplement Gastrointestinal: soft, lax, Normal bowel sounds, Non tender Skin : Warm, Dry Neurological : Alert & oriented x3, No focal deficit Objective Data Active Medications Acetaminophen (Acetaminophen 325 Mg Tablet) 650 mg PO Q6H PRN PRN Reason: Pain, Mild (Pain Scale 1-3) Albuterol Sulfate (Albuterol Sulfate 90 Mcg 8 Gm Inhaler) 4 puff INHALE Q2H PRN PRN Reason: Shortness of Breath/Wheezing Last Admin: 06/05/21 11:54 Dose: 4 puff Documented by: ARY Baricitinib (Baricitinib 2 Mg Tablet) 4 mg PO DAILY [facility] Stop: 06/18/21 09:01 Last Admin: 06/05/21 10:51 Dose: 4 mg Documented by: LAURYN Dexamethasone Sodium Phosphate (Dexamethasone Sod Phosphate 4 Mg/Ml Vial) 6 mg IVPUSH DAILY [facility] Last Admin: 06/05/21 09:17 Dose: 6 mg Documented by: LAURYN Enoxaparin Sodium (Enoxaparin Sodium 40 Mg/0.4 Ml Syringe) 40 mg SUBCUT Q24H [facility] Last Admin: 06/04/21 21:33 Dose: 40 mg Documented by: TENZIN Famotidine (Famotidine 20 Mg Tablet) 20 mg PO BID [facility] Last Admin: 06/05/21 09:17 Dose: 20 mg Documented by: LAURYN Melatonin (Melatonin 3 Mg Tablet) 6 mg PO BEDTIME PRN PRN Reason: Insomnia Morphine Sulfate (Morphine Sulfate 4 Mg/Ml Cartridge) 1 mg IVPUSH Q4H PRN; Protocol PRN Reason: Pain, SOB Last Admin: 06/02/21 19:49 Dose: 1 mg Documented by: HUGH Pharmacy Consult (Consult Rx Perform Med Rec) 1 each MISCELLANE ONCE PRN PRN Reason: Consult order Senna (Sennosides 8.6 Mg Tablet) 17.2 mg PO BEDTIME PRN PRN Reason: Constipation Sodium Chloride (0.9 % Sodium Chloride Flush 3 Ml Syringe) 3 ml IVFLUSH QSHIFT [facility] Last Admin: 06/05/21 09:17 Dose: 3 ml Documented by: LAURYN Labs CBC & Chem 7: 06/05/21 06:15 06/05/21 06:15 Labs: Laboratory Results - last 24 hr 06/05/21 06/05/21 06/05/21 06:15 06:15 06:15 MCV 88.5 MCH 29.6 MCHC 33.5 RDW 12.9 Plt Count 333 MPV 9.4 Absolute Nucleated RBC 0.000 Nucleated RBC % (auto) 0.0 D-Dimer High Sensitivty 921 Anion Gap 16 Estim Creat Clear Calc 143.7 Estimated GFR > 60 Fasting Glucose 94 Calcium 8.7 Total Bilirubin 0.9 Direct Bilirubin 0.4 AST 120 H ALT 232 H Alkaline Phosphatase 54 Lactate Dehydrogenase 691 H C-Reactive Protein 2.02 H Total Protein 6.1 L Albumin 3.4 L Assessment and Plan (1) Acute hypoxemic respiratory failure due to COVID-19: Status: Acute (2) Epistaxis: Status: Acute Assessment and Plan: 55M presented with sob found to have COVID-19 infection admitted for further evaluation and treatment. Acute hypoxic respiratory failure secondary to COVID pneumonia Increased oxygen requirement to high-flow 55 L, 70% Wean O2 as tolerated Dexamethasone day 5 ID appreciated, started remdesivir To start Baricitinib Monitor inflammatory markers To get intensive care evaluation epistaxis improved due to NC got afrin yesterday use humidified air if possible DVT PPX Lovenox Quality Stroke Does the patient have a stroke diagnosis?: No VTE Prior VTE?: No VTE Risk Level:: Medical - moderate - high VTE Device Contraindication: Treatment Not Indicated VTE Drug Contraindication: N/A - Med Ordered
--- NOTE | 2021-06-05 13:59 | MHC.CM.PN ---
Male 55 DX Covid+ DP is home with or without services. Pts will provide transport home. Patient continues to require High Flow oxygen via HFNC as well as a NRB..
[2021-06-05] MEDS: Enoxaparin Sodium 40 MG/0.4 ML SYRINGE SUBCUT (19:59)
[2021-06-06] VITALS (14 sets, daily range): BP systolic 122–178; BP diastolic 56–92; PULSE 63–115; RESP 18–28; TEMP 36.1–37.7; O2SAT 88–96
[2021-06-06] MEDS: Morphine Sulfate 4 MG/ML CARTRIDGE 1 MG IVPUSH (02:00)
[2021-06-06 06:12] LABS: Hematocrit 43.6 % (42.0-52.0); Hemoglobin 14.7 g/dl (14.0-18.0); Mean Corpuscular HGB Conc 33.7 g/dl (31.0-36.0); Mean Corpuscular Hemoglobin 29.5 pg (27.0-33.0); Mean Corpuscular Volume 87.4 fL (80.0-98.0); Mean Platelet Volume 9.1 fL (9.4-12.4); Platelet Count 385 X10*3/uL (160-400); Red Blood Count 4.99 X10*6/uL (4.60-5.80); Red Cell Distribution Width 12.8 % (11.0-16.0); White Blood Count 18.2 X10*3/uL (4.8-10.8)
[2021-06-06 06:35] LABS: Anion Gap 16 (12-20); Blood Urea Nitrogen 17 mg/dL (9-16); Calcium 8.7 mg/dL (8.4-10.2); Carbon Dioxide 23 mmol/L (22-29); Chloride 101 mmol/L (96-108); Creatinine Clr Calc Pharmacy 145.6; Estimated Glomerular Filt Rate > 60; Glucose Random 77 mg/dL (60-115); Potassium 4.8 mmol/L (3.3-5.1); Sodium 135 mmol/L (135-145)
[2021-06-06] MEDS: 0.9 % Sodium Chloride Flush 3 ML SYRINGE IVFLUSH ×3 (09:58→20:07)
[2021-06-06] MEDS: dexAMETHasone sod phosphate 4 MG/ML VIAL 6 MG IVPUSH (09:58)
[2021-06-06] MEDS: Famotidine 20 MG TABLET PO ×2 (09:59→20:07)
--- NOTE | 2021-06-06 10:28 | HO.PM.IMPN ---
Subjective Subjective Date of Service: 06/06/21 Interval History: the patient was seen and evaluated this morning Laying in bed, feels little anxious and concerned On high-flow oxygen, increase respiratory rate Decreased appetite No reported other overnight events. Systemic review: No fever, chills but reports generalized weakness No chest pain, palpitation Having shortness of breath and dyspnea with minimal exertion No abdominal pain, nausea or vomiting No urinary symptoms No any rash or wounds Physical Exam Vital Signs: Vital Signs: Last Vital Signs Temp 99.9 F 06/06/21 07:37 Pulse 115 H 06/06/21 08:36 Resp 28 H 06/06/21 08:36 BP 123/56 L 06/06/21 07:37 Pulse Ox 88 L 06/06/21 07:37 Oxygen Flow Rate 2 06/01/21 16:45 BMI result Body Mass Index 31.8 Const: Other: Constitutional : Alert, oriented, in mild respiratory distress Neck : Normal inspection, Supple Cardiovascular : RRR, S1 S2, no lower extremity edema Respiratory : Decreased bilateral air entry, no wheezes, on high-flow oxygen supplement Gastrointestinal: soft, lax, Normal bowel sounds, Non tender Skin : Warm, Dry Neurological : Alert & oriented x3, No focal deficit Objective Data Active Medications Acetaminophen (Acetaminophen 325 Mg Tablet) 650 mg PO Q6H PRN PRN Reason: Pain, Mild (Pain Scale 1-3) Albuterol Sulfate (Albuterol Sulfate 90 Mcg 8 Gm Inhaler) 4 puff INHALE Q2H PRN PRN Reason: Shortness of Breath/Wheezing Last Admin: 06/05/21 15:35 Dose: 4 puff Documented by: ARY Baricitinib (Baricitinib 2 Mg Tablet) 4 mg PO DAILY [facility] Stop: 06/18/21 09:01 Last Admin: 06/06/21 09:58 Dose: 4 mg Documented by: LAURYN Dexamethasone Sodium Phosphate (Dexamethasone Sod Phosphate 4 Mg/Ml Vial) 6 mg IVPUSH DAILY [facility] Last Admin: 06/06/21 09:58 Dose: 6 mg Documented by: LAURYN Enoxaparin Sodium (Enoxaparin Sodium 40 Mg/0.4 Ml Syringe) 40 mg SUBCUT Q24H [facility] Last Admin: 06/05/21 19:59 Dose: 40 mg Documented by: DONALD Famotidine (Famotidine 20 Mg Tablet) 20 mg PO BID [facility] Last Admin: 06/06/21 09:59 Dose: 20 mg Documented by: LAURYN Melatonin (Melatonin 3 Mg Tablet) 6 mg PO BEDTIME PRN PRN Reason: Insomnia Morphine Sulfate (Morphine Sulfate 4 Mg/Ml Cartridge) 1 mg IVPUSH Q4H PRN; Protocol PRN Reason: Pain, SOB Last Admin: 06/06/21 02:00 Dose: 1 mg Documented by: DONALD Pharmacy Consult (Consult Rx Perform Med Rec) 1 each MISCELLANE ONCE PRN PRN Reason: Consult order Senna (Sennosides 8.6 Mg Tablet) 17.2 mg PO BEDTIME PRN PRN Reason: Constipation Sodium Chloride (0.9 % Sodium Chloride Flush 3 Ml Syringe) 3 ml IVFLUSH QSHIFT [facility] Last Admin: 06/06/21 09:58 Dose: 3 ml Documented by: LAURYN Labs CBC & Chem 7: 06/06/21 05:42 06/06/21 05:42 Labs: Laboratory Results - last 24 hr 06/06/21 06/06/21 05:42 05:42 MCV 87.4 MCH 29.5 MCHC 33.7 RDW 12.8 Plt Count 385 MPV 9.1 L Absolute Nucleated RBC 0.000 Nucleated RBC % (auto) 0.0 Anion Gap 16 Estim Creat Clear Calc 145.6 Estimated GFR > 60 Random Glucose 77 D Calcium 8.7 Assessment and Plan (1) Acute hypoxemic respiratory failure due to COVID-19: Status: Acute (2) Pneumonia due to COVID-19 virus: Status: Acute Assessment and Plan: 55M presented with sob found to have COVID-19 infection admitted for further evaluation and treatment. Acute hypoxic respiratory failure secondary to COVID pneumonia More tachypneic and distressed today oxygen requirement to high-flow 45 L, 60% Wean O2 as tolerated Dexamethasone day 6 ID appreciated, continue Baricitinib day 2 Monitor inflammatory markers Pending intensive care evaluation epistaxis improved due to [place] got afrin yesterday use humidified air if possible DVT PPX Lovenox Quality Stroke Does the patient have a stroke diagnosis?: No VTE Prior VTE?: No VTE Risk Level:: Medical - moderate - high VTE Device Contraindication: Treatment Not Indicated VTE Drug Contraindication: N/A - Med Ordered
[2021-06-06] MEDS: Albuterol Sulfate 90 MCG 8 GM INHALER 4 PUFF INHALE (11:18)
[2021-06-06] MEDS: Enoxaparin Sodium 40 MG/0.4 ML SYRINGE SUBCUT (20:07)
[2021-06-07] VITALS (10 sets, daily range): BP systolic 117–133; BP diastolic 72–80; PULSE 58–82; RESP 18–24; TEMP 36.7–37.5; O2SAT 90–97
[2021-06-07 07:08] LABS: Hematocrit 44.9 % (42.0-52.0); Hemoglobin 15.1 g/dl (14.0-18.0); Mean Corpuscular HGB Conc 33.6 g/dl (31.0-36.0); Mean Corpuscular Hemoglobin 29.5 pg (27.0-33.0); Mean Corpuscular Volume 87.9 fL (80.0-98.0); Mean Platelet Volume 9.2 fL (9.4-12.4); Platelet Count 463 X10*3/uL (160-400); Red Blood Count 5.11 X10*6/uL (4.60-5.80); Red Cell Distribution Width 12.8 % (11.0-16.0); White Blood Count 18.2 X10*3/uL (4.8-10.8)
[2021-06-07 07:28] LABS: Anion Gap 16 (12-20); Blood Urea Nitrogen 21 mg/dL (9-16); Calcium 8.8 mg/dL (8.4-10.2); Carbon Dioxide 22 mmol/L (22-29); Chloride 100 mmol/L (96-108); Creatinine Clr Calc Pharmacy 138.1; Estimated Glomerular Filt Rate > 60; Glucose Random 77 mg/dL (60-115); Lactate Dehydrogenase 531 U/L (118-273); Potassium 4.7 mmol/L (3.3-5.1); Sodium 133 mmol/L (135-145)
[2021-06-07] MEDS: dexAMETHasone sod phosphate 4 MG/ML VIAL 6 MG IVPUSH (08:41)
[2021-06-07] MEDS: Famotidine 20 MG TABLET PO ×2 (08:42→20:44)
[2021-06-07] MEDS: 0.9 % Sodium Chloride Flush 3 ML SYRINGE IVFLUSH ×3 (08:43→20:44)
--- NOTE | 2021-06-07 11:56 | MHC.CM.PN ---
Per ROUNDS discussion, Patient is not yet medically cleared for dc (IV Decadron, High Flow O2). Home is the goal for dc and CM will follow for possible need to adjust the dc plan.
--- NOTE | 2021-06-07 12:23 | P.PNIM_ITS ---
Subjective Subjective Date of Service: 06/07/21 Interval History: the patient was seen and evaluated this morning Laying in bed, feels more comfortable today On high-flow oxygen, still dyspneic and tachypneic Eating little bit better No reported other overnight events. Systemic review: No fever, chills but reports generalized weakness No chest pain, palpitation Having shortness of breath and dyspnea with minimal exertion No abdominal pain, nausea or vomiting No urinary symptoms No any rash or wounds Physical Exam Vital Signs: Vital Signs: Last Vital Signs Temp 99.5 F 06/07/21 11:57 Pulse 63 06/07/21 11:57 Resp 22 H 06/07/21 11:57 BP 133/80 06/07/21 11:57 Pulse Ox 95 06/07/21 11:57 Oxygen Flow Rate 2 06/01/21 16:45 BMI result Body Mass Index 31.8 Const: Other: Constitutional : Alert, oriented, in moderate respiratory distress Neck : Normal inspection, Supple Cardiovascular : RRR, S1 S2, no lower extremity edema Respiratory : Decreased bilateral air entry, no wheezes, on high-flow oxygen supplement Gastrointestinal: soft, lax, Normal bowel sounds, Non tender Skin : Warm, Dry Neurological : Alert & oriented x3, No focal deficit Objective Data Active Medications Acetaminophen (Acetaminophen 325 Mg Tablet) 650 mg PO Q6H PRN PRN Reason: Pain, Mild (Pain Scale 1-3) Albuterol Sulfate (Albuterol Sulfate 90 Mcg 8 Gm Inhaler) 4 puff INHALE Q2H PRN PRN Reason: Shortness of Breath/Wheezing Last Admin: 06/06/21 11:18 Dose: 4 puff Documented by: ARY Baricitinib (Baricitinib 2 Mg Tablet) 4 mg PO DAILY [facility] Stop: 06/18/21 09:01 Last Admin: 06/07/21 09:27 Dose: 4 mg Documented by: BELLE Dexamethasone Sodium Phosphate (Dexamethasone Sod Phosphate 4 Mg/Ml Vial) 6 mg IVPUSH DAILY [facility] Last Admin: 06/07/21 08:41 Dose: 6 mg Documented by: BELLE Enoxaparin Sodium (Enoxaparin Sodium 40 Mg/0.4 Ml Syringe) 40 mg SUBCUT Q24H [facility] Last Admin: 06/06/21 20:07 Dose: 40 mg Documented by: DONALD Famotidine (Famotidine 20 Mg Tablet) 20 mg PO BID [facility] Last Admin: 06/07/21 08:42 Dose: 20 mg Documented by: BELLE Melatonin (Melatonin 3 Mg Tablet) 6 mg PO BEDTIME PRN PRN Reason: Insomnia Pharmacy Consult (Consult Rx Perform Med Rec) 1 each MISCELLANE ONCE PRN PRN Reason: Consult order Senna (Sennosides 8.6 Mg Tablet) 17.2 mg PO BEDTIME PRN PRN Reason: Constipation Sodium Chloride (0.9 % Sodium Chloride Flush 3 Ml Syringe) 3 ml IVFLUSH QSHIFT [facility] Last Admin: 06/07/21 08:43 Dose: 3 ml Documented by: BELLE Labs CBC & Chem 7: 06/07/21 06:11 06/07/21 06:11 Labs: Laboratory Results - last 24 hr 06/07/21 06/07/21 06:11 06:11 MCV 87.9 MCH 29.5 MCHC 33.6 RDW 12.8 Plt Count 463 H MPV 9.2 L Absolute Nucleated RBC 0.000 Nucleated RBC % (auto) 0.0 Anion Gap 16 Estim Creat Clear Calc 138.1 Estimated GFR > 60 Random Glucose 77 Calcium 8.8 Lactate Dehydrogenase 531 H C-Reactive Protein 8.80 H Assessment and Plan (1) Acute hypoxemic respiratory failure due to COVID-19: Status: Acute (2) Pneumonia due to COVID-19 virus: Status: Acute Assessment and Plan: 55M presented with sob found to have COVID-19 infection admitted for further evaluation and treatment. Acute hypoxic respiratory failure secondary to COVID pneumonia Still tachypneic and distressed today oxygen requirement to high-flow 45 L, 60% Wean O2 as tolerated Dexamethasone day 7 ID appreciated, continue Baricitinib day 3 Monitor inflammatory markers intensive care evaluation epistaxis improved due to [place] use humidified air as possible DVT PPX Lovenox Quality Stroke Does the patient have a stroke diagnosis?: No VTE Prior VTE?: No VTE Risk Level:: Medical - moderate - high VTE Device Contraindication: Treatment Not Indicated VTE Drug Contraindication: N/A - Med Ordered
[2021-06-07] MEDS: Enoxaparin Sodium 40 MG/0.4 ML SYRINGE SUBCUT (20:44)
[2021-06-08] VITALS (10 sets, daily range): BP systolic 118–156; BP diastolic 60–87; PULSE 51–81; RESP 18–24; TEMP 35.8–37.3; O2SAT 91–98
[2021-06-08 06:39] LABS: Hematocrit 42.7 % (42.0-52.0); Hemoglobin 14.7 g/dl (14.0-18.0); Mean Corpuscular HGB Conc 34.4 g/dl (31.0-36.0); Mean Corpuscular Hemoglobin 29.9 pg (27.0-33.0); Mean Platelet Volume 9.1 fL (9.4-12.4); Platelet Count 517 X10*3/uL (160-400); Red Blood Count 4.91 X10*6/uL (4.60-5.80); Red Cell Distribution Width 12.8 % (11.0-16.0); White Blood Count 17.6 X10*3/uL (4.8-10.8)
[2021-06-08 06:54] LABS: Anion Gap 15 (12-20); Blood Urea Nitrogen 20 mg/dL (9-16); Calcium 9.2 mg/dL (8.4-10.2); Carbon Dioxide 21 mmol/L (22-29); Chloride 103 mmol/L (96-108); Creatinine Clr Calc Pharmacy 138.1; Estimated Glomerular Filt Rate > 60; Glucose Random 81 mg/dL (60-115); Potassium 4.8 mmol/L (3.3-5.1); Sodium 134 mmol/L (135-145)
[2021-06-08] MEDS: Famotidine 20 MG TABLET PO ×2 (08:49→20:23)
[2021-06-08] MEDS: 0.9 % Sodium Chloride Flush 3 ML SYRINGE IVFLUSH ×3 (08:49→20:23)
[2021-06-08] MEDS: dexAMETHasone sod phosphate 4 MG/ML VIAL 6 MG IVPUSH (08:54)
--- NOTE | 2021-06-08 10:59 | HO.PM.IMPN ---
Subjective Subjective Date of Service: 06/08/21 Interval History: the patient was seen and evaluated this morning Laying in bed, improving on daily basis Still on high-flow oxygen, still dyspneic and tachypneic Better appetite No reported other overnight events. Systemic review: No fever, chills but reports generalized weakness No chest pain, palpitation Having shortness of breath and dyspnea with minimal exertion No abdominal pain, nausea or vomiting No urinary symptoms No any rash or wounds Physical Exam Vital Signs: Vital Signs: Last Vital Signs Temp 98.4 F 06/08/21 08:00 Pulse 68 06/08/21 08:00 Resp 24 H 06/08/21 08:00 BP 119/75 06/08/21 08:00 Pulse Ox 96 06/08/21 08:00 Oxygen Flow Rate 2 06/01/21 16:45 BMI result Body Mass Index 31.8 Const: Other: Constitutional : Alert, oriented, in moderate respiratory distress Neck : Normal inspection, Supple Cardiovascular : RRR, S1 S2, no lower extremity edema Respiratory : Decreased bilateral air entry, no wheezes, on high-flow oxygen supplement Gastrointestinal: soft, lax, Normal bowel sounds, Non tender Skin : Warm, Dry Neurological : Alert & oriented x3, No focal deficit Objective Data Active Medications Acetaminophen (Acetaminophen 325 Mg Tablet) 650 mg PO Q6H PRN PRN Reason: Pain, Mild (Pain Scale 1-3) Albuterol Sulfate (Albuterol Sulfate 90 Mcg 8 Gm Inhaler) 4 puff INHALE Q2H PRN PRN Reason: Shortness of Breath/Wheezing Last Admin: 06/06/21 11:18 Dose: 4 puff Documented by: ARY Baricitinib (Baricitinib 2 Mg Tablet) 4 mg PO DAILY [facility] Stop: 06/18/21 09:01 Last Admin: 06/08/21 08:48 Dose: 4 mg Documented by: MIGNON Dexamethasone Sodium Phosphate (Dexamethasone Sod Phosphate 4 Mg/Ml Vial) 6 mg IVPUSH DAILY [facility] Last Admin: 06/08/21 08:54 Dose: 6 mg Documented by: MIGNON Enoxaparin Sodium (Enoxaparin Sodium 40 Mg/0.4 Ml Syringe) 40 mg SUBCUT Q24H [facility] Last Admin: 06/07/21 20:44 Dose: 40 mg Documented by: ANTOIC Famotidine (Famotidine 20 Mg Tablet) 20 mg PO BID [facility] Last Admin: 06/08/21 08:49 Dose: 20 mg Documented by: MIGNON Melatonin (Melatonin 3 Mg Tablet) 6 mg PO BEDTIME PRN PRN Reason: Insomnia Pharmacy Consult (Consult Rx Perform Med Rec) 1 each MISCELLANE ONCE PRN PRN Reason: Consult order Senna (Sennosides 8.6 Mg Tablet) 17.2 mg PO BEDTIME PRN PRN Reason: Constipation Sodium Chloride (0.9 % Sodium Chloride Flush 3 Ml Syringe) 3 ml IVFLUSH QSHIFT [facility] Last Admin: 06/08/21 08:49 Dose: 3 ml Documented by: MIGNON Labs CBC & Chem 7: 06/08/21 06:14 06/08/21 06:14 Labs: Laboratory Results - last 24 hr 06/08/21 06/08/21 06:14 06:14 MCV 87.0 MCH 29.9 MCHC 34.4 RDW 12.8 Plt Count 517 H MPV 9.1 L Absolute Nucleated RBC 0.000 Nucleated RBC % (auto) 0.0 Anion Gap 15 Estim Creat Clear Calc 138.1 Estimated GFR > 60 Random Glucose 81 Calcium 9.2 Assessment and Plan (1) Acute hypoxemic respiratory failure due to COVID-19: Status: Acute (2) Pneumonia due to COVID-19 virus: Status: Acute Assessment and Plan: 55M presented with sob found to have COVID-19 infection admitted for further evaluation and treatment. Acute hypoxic respiratory failure secondary to COVID pneumonia Still tachypneic and distressed today oxygen requirement to high-flow 45 L, 60% Wean O2 as tolerated Dexamethasone day 8 ID appreciated, continue Baricitinib day 4 Monitor inflammatory markers intensive care evaluation epistaxis improved due to [place] use humidified air as possible DVT PPX Lovenox Quality Stroke Does the patient have a stroke diagnosis?: No VTE Prior VTE?: No VTE Risk Level:: Medical - moderate - high VTE Device Contraindication: Treatment Not Indicated VTE Drug Contraindication: N/A - Med Ordered
[2021-06-08] MEDS: Enoxaparin Sodium 40 MG/0.4 ML SYRINGE SUBCUT (20:23)
[2021-06-09 03:49] VITALS: BP 132/84; PULSE 76; RESP 20; TEMP 36.6; O2SAT 98
[2021-06-09 07:04] LABS: Anion Gap 15 (12-20); Blood Urea Nitrogen 19 mg/dL (9-16); C Reactive Protein 4.77 mg/dL (< or = 0.50); Calcium 9.1 mg/dL (8.4-10.2); Carbon Dioxide 21 mmol/L (22-29); Chloride 102 mmol/L (96-108); Creatinine Clr Calc Pharmacy 145.6; Estimated Glomerular Filt Rate > 60; Glucose Random 79 mg/dL (60-115); Lactate Dehydrogenase 401 U/L (118-273); Potassium 4.6 mmol/L (3.3-5.1); Sodium 133 mmol/L (135-145)
[2021-06-09 07:12] VITALS: BP 111/68; PULSE 60; RESP 20; TEMP 36.5; O2SAT 95
[2021-06-09] MEDS: Famotidine 20 MG TABLET PO ×2 (09:09→20:29)
[2021-06-09] MEDS: dexAMETHasone sod phosphate 4 MG/ML VIAL 6 MG IVPUSH (09:09)
[2021-06-09] MEDS: 0.9 % Sodium Chloride Flush 3 ML SYRINGE IVFLUSH ×2 (09:10→16:22)
[2021-06-09 11:04] VITALS: BP 112/63; PULSE 82; RESP 18; TEMP 37.1; O2SAT 95
--- NOTE | 2021-06-09 12:14 | P.PNIM_ITS ---
Subjective Subjective Date of Service: 06/09/21 Interval History: the patient was seen and evaluated this morning Laying in bed, improving on daily basis On high-flow oxygen DC, on 15 L oximeter Better appetite No reported other overnight events. Systemic review: No fever, chills but reports generalized weakness No chest pain, palpitation Having shortness of breath and dyspnea with minimal exertion No abdominal pain, nausea or vomiting No urinary symptoms No any rash or wounds Physical Exam Vital Signs: Vital Signs: Last Vital Signs Temp 98.7 F 06/09/21 11:04 Pulse 82 06/09/21 11:04 Resp 18 06/09/21 11:04 BP 112/63 06/09/21 11:04 Pulse Ox 95 06/09/21 11:04 Oxygen Flow Rate 2 06/01/21 16:45 BMI result Body Mass Index 31.8 Const: Other: Constitutional : Alert, oriented, in moderate respiratory distress Neck : Normal inspection, Supple Cardiovascular : RRR, S1 S2, no lower extremity edema Respiratory : Decreased bilateral air entry, no wheezes, on 15 L Oxymizer Gastrointestinal: soft, lax, Normal bowel sounds, Non tender Skin : Warm, Dry Neurological : Alert & oriented x3, No focal deficit Objective Data Active Medications Acetaminophen (Acetaminophen 325 Mg Tablet) 650 mg PO Q6H PRN PRN Reason: Pain, Mild (Pain Scale 1-3) Albuterol Sulfate (Albuterol Sulfate 90 Mcg 8 Gm Inhaler) 4 puff INHALE Q2H PRN PRN Reason: Shortness of Breath/Wheezing Last Admin: 06/06/21 11:18 Dose: 4 puff Documented by: ARY Baricitinib (Baricitinib 2 Mg Tablet) 4 mg PO DAILY [facility] Stop: 06/18/21 09:01 Last Admin: 06/09/21 09:09 Dose: 4 mg Documented by: RASHEL Dexamethasone Sodium Phosphate (Dexamethasone Sod Phosphate 4 Mg/Ml Vial) 6 mg IVPUSH DAILY [facility] Last Admin: 06/09/21 09:09 Dose: 6 mg Documented by: RASHEL Enoxaparin Sodium (Enoxaparin Sodium 40 Mg/0.4 Ml Syringe) 40 mg SUBCUT Q24H [facility] Last Admin: 06/08/21 20:23 Dose: 40 mg Documented by: IDALIA Famotidine (Famotidine 20 Mg Tablet) 20 mg PO BID [facility] Last Admin: 06/09/21 09:09 Dose: 20 mg Documented by: RASHEL Melatonin (Melatonin 3 Mg Tablet) 6 mg PO BEDTIME PRN PRN Reason: Insomnia Pharmacy Consult (Consult Rx Perform Med Rec) 1 each MISCELLANE ONCE PRN PRN Reason: Consult order Senna (Sennosides 8.6 Mg Tablet) 17.2 mg PO BEDTIME PRN PRN Reason: Constipation Sodium Chloride (0.9 % Sodium Chloride Flush 3 Ml Syringe) 3 ml IVFLUSH QSHIFT [facility] Last Admin: 06/09/21 09:10 Dose: 3 ml Documented by: RASHEL Labs CBC & Chem 7: 06/08/21 06:14 06/09/21 06:04 Labs: Laboratory Results - last 24 hr 06/09/21 06:04 Anion Gap 15 Estim Creat Clear Calc 145.6 Estimated GFR > 60 Random Glucose 79 Calcium 9.1 Lactate Dehydrogenase 401 H C-Reactive Protein 4.77 H Assessment and Plan (1) Acute hypoxemic respiratory failure due to COVID-19: Status: Acute (2) Pneumonia due to COVID-19 virus: Status: Acute Assessment and Plan: 55M presented with sob found to have COVID-19 infection admitted for further evaluation and treatment. Acute hypoxic respiratory failure secondary to COVID pneumonia Still tachypneic and distressed today oxygen requirement decreased to 15 L Oxymizer Wean O2 as tolerated Dexamethasone day 9 ID appreciated, continue Baricitinib day 5 Monitor inflammatory markers intensive care evaluation epistaxis improved due to NC use humidified air as possible DVT PPX Lovenox Quality Stroke Does the patient have a stroke diagnosis?: No VTE Prior VTE?: No VTE Risk Level:: Medical - moderate - high VTE Device Contraindication: Treatment Not Indicated VTE Drug Contraindication: N/A - Med Ordered
[2021-06-09 15:25] VITALS: BP 118/72; PULSE 77; RESP 20; TEMP 36.3; O2SAT 96
[2021-06-09 19:36] VITALS: BP 135/84; PULSE 69; RESP 20; TEMP 36.3; O2SAT 95
[2021-06-09] MEDS: Enoxaparin Sodium 40 MG/0.4 ML SYRINGE SUBCUT (20:29)
[2021-06-10] VITALS (10 sets, daily range): BP systolic 111–142; BP diastolic 63–88; PULSE 57–96; RESP 18–20; TEMP 36.2–37; O2SAT 97–100
[2021-06-10] MEDS: 0.9 % Sodium Chloride Flush 3 ML SYRINGE IVFLUSH ×4 (00:31→19:35)
[2021-06-10 06:28] LABS: Anion Gap 12 (12-20); Blood Urea Nitrogen 20 mg/dL (9-16); Calcium 9.3 mg/dL (8.4-10.2); Carbon Dioxide 24 mmol/L (22-29); Chloride 102 mmol/L (96-108); Creatinine Clr Calc Pharmacy 136.4; Estimated Glomerular Filt Rate > 60; Glucose Random 90 mg/dL (60-115); Potassium 4.7 mmol/L (3.3-5.1); Sodium 133 mmol/L (135-145)
[2021-06-10] MEDS: dexAMETHasone sod phosphate 4 MG/ML VIAL 6 MG IVPUSH (07:57)
[2021-06-10] MEDS: Famotidine 20 MG TABLET PO ×2 (07:58→19:35)
--- NOTE | 2021-06-10 13:08 | HO.PM.IMPN ---
Subjective Subjective Date of Service: 06/10/21 Interval History: the patient was seen and evaluated this morning Sitting in his chair, feeling improvement Oxygen requirement decreased to 10 L Better appetite No reported other overnight events. Systemic review: No fever, chills but reports generalized weakness No chest pain, palpitation Having shortness of breath and dyspnea with minimal exertion No abdominal pain, nausea or vomiting No urinary symptoms No any rash or wounds Physical Exam Vital Signs: Vital Signs: Last Vital Signs Temp 97.8 F 06/10/21 11:39 Pulse 70 06/10/21 11:39 Resp 18 06/10/21 11:39 BP 111/76 06/10/21 11:39 Pulse Ox 99 06/10/21 11:39 Oxygen Flow Rate 2 06/01/21 16:45 BMI result Body Mass Index 31.8 Const: Other: Constitutional : Alert, oriented, in moderate respiratory distress Neck : Normal inspection, Supple Cardiovascular : RRR, S1 S2, no lower extremity edema Respiratory : Decreased bilateral air entry, no wheezes, on 15 L Oxymizer Gastrointestinal: soft, lax, Normal bowel sounds, Non tender Skin : Warm, Dry Neurological : Alert & oriented x3, No focal deficit Objective Data Active Medications Acetaminophen (Acetaminophen 325 Mg Tablet) 650 mg PO Q6H PRN PRN Reason: Pain, Mild (Pain Scale 1-3) Albuterol Sulfate (Albuterol Sulfate 90 Mcg 8 Gm Inhaler) 4 puff INHALE Q2H PRN PRN Reason: Shortness of Breath/Wheezing Last Admin: 06/06/21 11:18 Dose: 4 puff Documented by: ARY Baricitinib (Baricitinib 2 Mg Tablet) 4 mg PO DAILY [facility] Stop: 06/18/21 09:01 Last Admin: 06/10/21 07:57 Dose: 4 mg Documented by: JOHANNE Dexamethasone Sodium Phosphate (Dexamethasone Sod Phosphate 4 Mg/Ml Vial) 6 mg IVPUSH DAILY [facility] Last Admin: 06/10/21 07:57 Dose: 6 mg Documented by: JOHANNE Enoxaparin Sodium (Enoxaparin Sodium 40 Mg/0.4 Ml Syringe) 40 mg SUBCUT Q24H [facility] Last Admin: 06/09/21 20:29 Dose: 40 mg Documented by: KENDY Famotidine (Famotidine 20 Mg Tablet) 20 mg PO BID [facility] Last Admin: 06/10/21 07:58 Dose: 20 mg Documented by: JOHANNE Melatonin (Melatonin 3 Mg Tablet) 6 mg PO BEDTIME PRN PRN Reason: Insomnia Pharmacy Consult (Consult Rx Perform Med Rec) 1 each MISCELLANE ONCE PRN PRN Reason: Consult order Senna (Sennosides 8.6 Mg Tablet) 17.2 mg PO BEDTIME PRN PRN Reason: Constipation Sodium Chloride (0.9 % Sodium Chloride Flush 3 Ml Syringe) 3 ml IVFLUSH QSHIFT [facility] Last Admin: 06/10/21 07:57 Dose: 3 ml Documented by: JOHANNE Labs CBC & Chem 7: 06/08/21 06:14 06/10/21 05:38 Labs: Laboratory Results - last 24 hr 06/10/21 05:38 Anion Gap 12 Estim Creat Clear Calc 136.4 Estimated GFR > 60 Random Glucose 90 Calcium 9.3 Assessment and Plan (1) Acute hypoxemic respiratory failure due to COVID-19: Status: Acute (2) Pneumonia due to COVID-19 virus: Status: Acute Assessment and Plan: 55M presented with sob found to have COVID-19 infection admitted for further evaluation and treatment. Acute hypoxic respiratory failure secondary to COVID pneumonia Still tachypneic and distressed today oxygen requirement decreased to 10 L Oxymizer Wean O2 as tolerated Dexamethasone day 10 ID appreciated, continue Baricitinib day 6 Monitor inflammatory markers intensive care evaluation epistaxis improved due to NC use humidified air as possible DVT PPX Lovenox Quality Stroke Does the patient have a stroke diagnosis?: No VTE Prior VTE?: No VTE Risk Level:: Medical - moderate - high VTE Device Contraindication: Treatment Not Indicated VTE Drug Contraindication: N/A - Med Ordered
--- NOTE | 2021-06-10 13:19 | MHC.CM.PN ---
Per ROUNDS discussion, Patient is not yet medically cleared for dc (IV Decadron, 10 L O2). Home is the goal for dc and CM will follow for possible need to adjust the dc plan.
[2021-06-10] MEDS: Enoxaparin Sodium 40 MG/0.4 ML SYRINGE SUBCUT (19:35)
[2021-06-11 00:08] VITALS: O2SAT 98
[2021-06-11 03:26] VITALS: BP 135/86; PULSE 67; RESP 18; TEMP 36.3; O2SAT 96
[2021-06-11 06:40] LABS: Hematocrit 41.5 % (42.0-52.0); Hemoglobin 14.1 g/dl (14.0-18.0); Mean Corpuscular Hemoglobin 29.9 pg (27.0-33.0); Mean Corpuscular Volume 87.9 fL (80.0-98.0); Platelet Count 541 X10*3/uL (160-400); Red Blood Count 4.72 X10*6/uL (4.60-5.80); Red Cell Distribution Width 12.5 % (11.0-16.0); White Blood Count 11.3 X10*3/uL (4.8-10.8)
[2021-06-11 06:47] LABS: Anion Gap 12 (12-20); Blood Urea Nitrogen 19 mg/dL (9-16); Calcium 9.3 mg/dL (8.4-10.2); Carbon Dioxide 25 mmol/L (22-29); Chloride 102 mmol/L (96-108); Creatinine Clr Calc Pharmacy 141.8; Estimated Glomerular Filt Rate > 60; Glucose Random 79 mg/dL (60-115); Potassium 4.2 mmol/L (3.3-5.1); Sodium 135 mmol/L (135-145)
[2021-06-11 08:00] VITALS: BP 117/71; PULSE 77; RESP 20; TEMP 36.6; O2SAT 95
[2021-06-11] MEDS: Famotidine 20 MG TABLET PO (08:09)
[2021-06-11] MEDS: 0.9 % Sodium Chloride Flush 3 ML SYRINGE IVFLUSH (08:09)
[2021-06-11] MEDS: dexAMETHasone sod phosphate 4 MG/ML VIAL 6 MG IVPUSH (08:09)
[2021-06-11 09:12] VITALS: PULSE 68; O2SAT 95
--- NOTE | 2021-06-11 10:03 | PM.DS ---
DS: Providers Provider Date of Service: 06/11/21 Date of admission: 06/01/21 19:13 Primary care physician: Erick Rosado MD Consults: 06/01/21 19:13 Consult to Infectious Diseases Routine Consulting Provider: Ladi De Leon Reason for consultation: COVID pneumonia 06/05/21 08:39 Consult to Critical Care Routine Consulting Provider: Gabe Powers Reason for consultation: Hypoxic Resp failure 2/2 Covid, Increase O2 requirement DS: Diagnosis Discharge Diagnosis (1) Acute hypoxemic respiratory failure due to COVID-19: Status: Acute (2) Pneumonia due to COVID-19 virus: Status: Acute (3) Epistaxis: Status: Acute DS: Summary Hospital Course Hospital Course: Admission note HPI ?55-year-old male with a past medical history of alcohol use, herniated disc presented to the hospital with a chief complaint of shortness of breath.? Patient reports that over the past 1 week he has been not feeling well, having shortness of breath, generalized weakness, decreased appetite; over the past 2 days his symptoms have been worsened hence decided to come to the ER for further evaluation.? Denies any chest pain palpitations lightheadedness or dizziness.? Review of all other systems is negative except mentioned above Per ER team patient on presentation noted to be saturating 88% on room air; not in respiratory distress; placed on supplemental oxygen; chest x-ray showed multifocal pneumonia/ COVID fetus; given Decadron.? Admitted to the hospital for further management.? D-dimer elevated to? 315 Hospital course The patient was admitted to the COVID unit and treated with dexamethasone, baricitinib and oxygen supplement. He required high-flow oxygen for 2 days before starting to wean down to room on the day of discharge. He was evaluated by Infectious care disease team during the hospital stay. Able to ambulate with no drop in his oxygen level maintaining it above 92%. Finish total of 10 days of dexamethasone. To be discharged home on [id number] medication and supportive therapy to continue his rehab for going back to work. Time Spent with Patient Time attestation: Total time spent providing and/or coordinating discharge services: Discharge coordination time: Greater than 30 minutes Quality: Stroke Does the patient have a stroke diagnosis?: No Physical Exam Vital Signs: Vital Signs: Last Vital Signs Temp 97.8 F 06/11/21 08:00 Pulse 77 06/11/21 08:00 Resp 20 06/11/21 08:00 BP 117/71 06/11/21 08:00 Pulse Ox 95 06/11/21 08:00 Oxygen Flow Rate 2 06/01/21 16:45 BMI result Body Mass Index 31.8 Const: Other: Constitutional : Alert, oriented, in not in distress Neck : Normal inspection, Supple Cardiovascular : RRR, S1 S2, no lower extremity edema Respiratory : Fair bilateral air entry, no wheezes, on room air Gastrointestinal: soft, lax, Normal bowel sounds, Non tender Skin : Warm, Dry Neurological : Alert & oriented x3, No focal deficit DS: Data Data Completed and Pending Labs on day of discharge: Laboratory Results - last 24 hr 06/11/21 06/11/21 06:15 06:15 WBC 11.3 H RBC 4.72 Hgb 14.1 Hct 41.5 L MCV 87.9 MCH 29.9 MCHC 34.0 RDW 12.5 Plt Count 541 H MPV 9.0 L Absolute Nucleated RBC 0.000 Nucleated RBC % (auto) 0.0 Sodium 135 Potassium 4.2 Chloride 102 Carbon Dioxide 25 Anion Gap 12 BUN 19 H Creatinine 0.76 Estim Creat Clear Calc 141.8 Estimated GFR > 60 Random Glucose 79 Calcium 9.3 Discharge Plan Discharge Patient Disposition: Home, Self-Care Discharge Diagnosis: Acute hypoxia COVID-19 infection Referrals: Erick Rosado MD [Primary Care Provider] - 1 Week Discharge Medications: Continued Men's 50 Plus Multivitamin 400-20-370 mcg Tablet 1 tab PO DAILY RF: 0 Discharge Orders: Discharge Order (Routine); Ordered 06/11/21 Ordered By: Shoaib Tesfaye Diet: advance to usual diet Activity on Discharge: As tolerated Stand Alone Forms: Patient Portal Discharge page Care Plan Goals: Read below Health Concerns: Read below Plan of Treatment: Read below Assessment: You were admitted to the hospital for treatment of COVID-19 infection requiring oxygen supplement, steroids and antiviral medication. You were evaluated by infectious disease specialist as your symptoms improved during the hospital stay. You finished total of 10 days of dexamethasone Continue recovery at home
--- NOTE | 2021-06-11 10:21 | MHC.CM.PN ---
Male 55 COVID+ He is Covid recovered. AVSS on AA SPO2 WNL. He is discharged today to home with family assist and transportation.
[2021-06-11 11:15] VITALS: BP 102/74; PULSE 67; TEMP 36.8; O2SAT 95
== END 2021-06-11 12:35 | disposition home or self-care (01) | DRG 137 ==
LOC: HO.ED 17:45 → HO.EDOVER 19:21 → HO.IMC 06-02 13:45
PROVIDERS: Internal Medicine; Admitting Provider Hospitalist; Emergency Provider Internal Medicine; PCP Family Medicine; Visit Provider Student in an Organized Health Care Education/Training Program
DX: U07.1 COVID-19 (principal); J96.01 Acute respiratory failure with hypoxia; J12.82 Pneumonia due to coronavirus disease 2019; R04.0 Epistaxis
CPT/HCPCS: 0241U; 36415; 71045; 71275; 80048; 80053; 80076; 82803; 83615; 83735; 85025; 85027; 85379; 85610; 85730; 86140; 93005; 96361; 96374; 99285; J0696; J1100; J1650; J2270; J8540; Q9967